=== PATIENT | female | born 1985 | race Caucasian/White ===

== ENCOUNTER 2017-05-30 21:30 | Inpatient (IN) | payer MEDICAID ==
[~2017-05-30] VITALS: Ht 157.5 cm; Wt 72.6 kg
[~2017-05-30 21:30] MED LIST: DEXAMETHASONE SOD PHOS 4 MG/ML VIAL IVP ONE; DSS100 PO; EPHEDrine SULFATE 50 MG/ML VIAL IM ONE; FERR-72 PO; IBUP-2070 PO; KETOROLAC TROMETHAMINE 60 MG/2 ML VIAL IM ONE; ONDANSETRON HCL 4 MG/2 ML VIAL IVP ONE; OXYTOCIN 10 UNITS/ML VIAL IM ONE; PERCT PO
[2017-05-30] MEDS ORDERED: CITRIC ACID/SODIUM CITRATE 30 ML SOLUTION UDCUP ONE (22:05)
[2017-05-30] MEDS ORDERED: METOCLOPRAMIDE HCL 5 MG/ML 2 ML VIAL ONE (22:05)
[2017-05-30] MEDS ORDERED: RINGERS SOLUTION,LACTATED 1,000 ML IV ONE (22:07)
[2017-05-30] MEDS ORDERED: FentaNYL CITRATE-PF 100 MCG/2 ML VIAL ONE (22:10)
[2017-05-30] MEDS ORDERED: MIDAZOLAM HCL 2 MG/2 ML VIAL ONE (22:10)
[2017-05-30] MEDS ORDERED: MORPHINE SULFATE/PF 0.5 MG/ML 10 ML AMP ONE (22:10)
[2017-05-30] MEDS ORDERED: CITRIC ACID/SODIUM CITRATE 30 ML SOLUTION UDCUP PO ONE (22:15)
[2017-05-30] MEDS ORDERED: METOCLOPRAMIDE HCL 5 MG/ML 2 ML VIAL IVP ONE (22:15)
[2017-05-30] MEDS ORDERED: TERBUTALINE SULFATE 1 MG/ML VIAL ONE (22:20)
[2017-05-30 22:31] LABS: BASOPHILS # (AUTO) 0.09 K/uL (0.00-0.20); EOSINOPHILS # (AUTO) 0.14 K/uL (0.00-0.70); EOSINOPHILS % (AUTO) 1.47 % (1.0-6.0); HEMATOCRIT 28.7 % (36-46); HEMOGLOBIN 9.2 g/dL (12.0-16.0); LYMPHOCYTES # (AUTO) 1.5 K/uL (1.0-4.8); LYMPHOCYTES % (AUTO) 16.4 % (22.0-44.0); MEAN CORPUSCULAR HEMOGLOBIN 25.5 pg (26.0-34.0); MEAN CORPUSCULAR HGB CONC 31.9 G/dL (31.0-37.0); MEAN CORPUSCULAR VOLUME 80 fL (80-100); MONOCYTES # (AUTO) 0.6 K/uL (0.1-1.0); MONOCYTES % (AUTO) 6.6 % (2.0-9.0); NEUTROPHILS # (AUTO) 6.9 K/uL (1.8-7.7); NEUTROPHILS % (AUTO) 74.5 % (40.0-70.0); RED BLOOD CELL COUNT(AUTO) 3.59 MIL/uL (4.00-5.20); RED CELL DISTRIBUTION WIDTH 17.4 % (11.5-14.5); WHITE BLOOD COUNT (AUTO) 9.2 K/uL (4.5-11.0)
[2017-05-30 22:51] VITALS: BP 124/77
[2017-05-30 22:51] LABS: RUBELLA SCREEN (IGG) IMMUNE (IMMUNE)
[2017-05-30] MEDS ORDERED: TERBUTALINE SULFATE 1 MG/ML VIAL SQ PRN (23:00)
[2017-05-30 23:14] LABS: RBC MORPHOLOGY COMMENT ABNORMAL RBC MORPH
[2017-05-30] MEDS ORDERED: OXYGEN THERAPY IH SCH ×2 (23:15)
[2017-05-30] MEDS ORDERED: ONDANSETRON HCL 4 MG/2 ML VIAL IVP PRN ×2 (23:15)
[2017-05-30] MEDS ORDERED: MORPHINE SULFATE 2 MG/ML SYRINGE IVP PRN (23:15)
[2017-05-30] MEDS ORDERED: FentaNYL CITRATE-PF 100 MCG/2 ML VIAL IVP PRN ×2 (23:15)
[2017-05-30] MEDS ORDERED: DiphenhydrAMINE HCL 50 MG/ML VIAL IVP PRN ×2 (23:15)
[2017-05-30] MEDS ORDERED: MORPHINE SULFATE 4 MG/ML SYRINGE IVP PRN (23:15)
[2017-05-30 23:29] LABS: APPEARANCE,URINE CLEAR (CLEAR); GLUCOSE, URINE (UA) 500 mg/dL (NEGATIVE); KETONES,URINE NEGATIVE (NEGATIVE); LEUKOCYTE ESTERASE ,URINE TRACE (NEGATIVE); OCCULT BLOOD,URINE SMALL (NEGATIVE); PH,URINE 6.5 (5.0-8.0); PROTEIN,URINE NEGATIVE (NEGATIVE)
[2017-05-30 23:31] LABS: ADD UA MICROSCOPIC YES
[2017-05-30 23:44] LABS: SQUAMOUS EPITHELIAL CELL,UR Few /LPF (None Seen)
[2017-05-31] MEDS ORDERED: LANOLIN 7 GM OINTMENT TP PRN (02:00)
[2017-05-31] MEDS: RINGERS SOLUTION,LACTATED 1,000 ML IV SCH ×3 (02:43→18:28)
[2017-05-31] MEDS: NALBUPHINE HCL 10 MG/ML VIAL IVP SCH ×3 (02:44→15:09)
[2017-05-31] MEDS: KETOROLAC TROMETHAMINE 30 MG/ML VIAL IVP SCH ×3 (06:14→18:13)
[2017-05-31] MEDS ORDERED: MAGNESIUM HYDROXIDE SUSPENSION 30 ML UDCUP PO PRN (18:45)
[2017-06-01] MEDS: IBUPROFEN 800 MG TABLET PO SCH ×3 (00:28→12:26)
[2017-06-01] MEDS ORDERED: ACETAMINOPHEN/CODEINE 300-30 MG TABLET PO PRN ×2 (02:00)
[2017-06-01 06:41] LABS: BASOPHILS % (AUTO) 0.1 % (0.0-2.0); EOSINOPHILS % (AUTO) 1.3 % (1.0-6.0); HEMATOCRIT 27.8 % (36-46); LYMPHOCYTES # (AUTO) 2.7 K/uL (1.0-4.8); LYMPHOCYTES % (AUTO) 22.1 % (22.0-44.0); MEAN CORPUSCULAR HEMOGLOBIN 25.8 pg (26.0-34.0); MEAN CORPUSCULAR HGB CONC 32.3 G/dL (31.0-37.0); MEAN CORPUSCULAR VOLUME 80 fL (80-100); MONOCYTES # (AUTO) 0.4 K/uL (0.1-1.0); MONOCYTES % (AUTO) 2.9 % (2.0-9.0); NEUTROPHILS % (AUTO) 73.6 % (40.0-70.0); RED BLOOD CELL COUNT(AUTO) 3.48 MIL/uL (4.00-5.20); RED CELL DISTRIBUTION WIDTH 17.4 % (11.5-14.5); WHITE BLOOD COUNT (AUTO) 12.3 K/uL (4.5-11.0)
[2017-06-01 09:10] LABS: RBC MORPHOLOGY COMMENT ABNORMAL RBC MORPH
[2017-06-01] MEDS ORDERED: IBUP-2070 PO ×3 (10:35→10:42)
[2017-06-04 07:01] LABS: AMPHETAMINES URINE Positive; METHAMPHETAMINES URINE Positive; UR AMPHETAMINES GC/MS CONFIRM 824 ng/mL (Cutoff=500); UR METHAMPHETAMINES GC/MS CONF 2780 ng/mL (Cutoff=500)
== END 2017-06-01 17:30 | disposition home or self-care (01) | DRG 540 ==
LOC: 4S 21:30 → OBSVTOIN 21:30 → 4S 05-31 01:36
PROVIDERS: ADMIT Obstetrics & Gynecology; ATTEND Obstetrics & Gynecology
PROC: 10D00Z1 Extraction of Products of Conception, Low, Open Approach (ICD-10-PCS; principal; 2017-05-30)
DX: O60.14X0 Preterm labor third trimester with preterm delivery third trimester, not applicable or unspecified (principal); O76 Abnormality in fetal heart rate and rhythm complicating labor and delivery; O34.211 Maternal care for low transverse scar from previous cesarean delivery; Z37.0 Single live birth; Z3A.32 32 weeks gestation of pregnancy
CPT/HCPCS: 80307; 80324; 86592; 86762; 86850; 86900; 86901; 87340; J0690; J1100; J1885; J2250; J2274; J2300; J2405; J2590; J2765; J3010; J3105; J3490; J7120

== ENCOUNTER 2021-05-03 18:01 | Emergency (ER) | payer MEDICAID ==
[~2021-05-03] VITALS: Ht 160 cm; Wt 72.7 kg
[~2021-05-03 18:01] MED LIST changes: -DEXAMETHASONE SOD PHOS 4 MG/ML VIAL IVP ONE; -EPHEDrine SULFATE 50 MG/ML VIAL IM ONE; -IBUP-2070 PO; -KETOROLAC TROMETHAMINE 60 MG/2 ML VIAL IM ONE; +LEVO750T68 PO; -ONDANSETRON HCL 4 MG/2 ML VIAL IVP ONE; -OXYTOCIN 10 UNITS/ML VIAL IM ONE
[2021-05-03 18:37] LABS: BASOPHILS % (AUTO) 0.3 % (0.0-2.0); EOSINOPHILS % (AUTO) 4.2 % (1.0-6.0); HEMATOCRIT 37.2 % (36-46); HEMOGLOBIN 12.2 g/dL (12.0-16.0); LYMPHOCYTES # (AUTO) 1.9 K/uL (1.0-4.8); LYMPHOCYTES % (AUTO) 21.8 % (22.0-44.0); MEAN CORPUSCULAR HEMOGLOBIN 29.9 pg (26.0-34.0); MEAN CORPUSCULAR HGB CONC 32.9 G/dL (31.0-37.0); MEAN CORPUSCULAR VOLUME 91 fL (80-100); MONOCYTES # (AUTO) 0.5 K/uL (0.1-1.0); MONOCYTES % (AUTO) 5.5 % (2.0-9.0); NEUTROPHILS # (AUTO) 6.1 K/uL (1.8-7.7); NEUTROPHILS % (AUTO) 68.2 % (40.0-70.0); PLATELET COUNT (AUTO) 362 K/uL (150-450); RED CELL DISTRIBUTION WIDTH 14.4 % (11.5-14.5)
[2021-05-03 18:59] LABS: APPEARANCE,URINE CLEAR (CLEAR); BILIRUBIN,URINE NEGATIVE (NEGATIVE); GLUCOSE, URINE (UA) >=1000 mg/dL (NEGATIVE); KETONES,URINE NEGATIVE (NEGATIVE); LEUKOCYTE ESTERASE ,URINE TRACE (NEGATIVE); NITRATE,URINE NEGATIVE (NEGATIVE); OCCULT BLOOD,URINE NEGATIVE (NEGATIVE); PROTEIN,URINE NEGATIVE (NEGATIVE); UROBILINOGEN,URINE 0.2 mg/dL (<=1.0)
[2021-05-03 19:02] LABS: BACTERIA,URINE None Seen /HPF (None Seen); RBC,URINE None Seen /HPF (0-2); SQUAMOUS EPITHELIAL CELL,UR Few /LPF (None Seen); WBC,URINE 0-2 /HPF (0-5)
[2021-05-03 19:04] LABS: ANION GAP 9 mmol/L (8-16); CALCIUM, TOTAL 8.4 mg/dL (8.8-10.5); CARBON DIOXIDE 27 mmol/L (22-29); CHLORIDE 106 mmol/L (98-107); GLOMERULAR FILTR. RATE CALC > 60 mL/min (>60); GLUCOSE,RANDOM 85 mg/dL (70-110); POTASSIUM 3.4 mmol/L (3.5-5.1); SODIUM SERUM 142 mmol/L (136-145); UREA NITROGEN, BLOOD 16 mg/dL (7-18)
[2021-05-03 19:14] LABS: ALANINE AMINOTRANSFERASE 28 U/L (12-78); ALBUMIN 3.1 g/dL (3.4-5.0); ALKALINE PHOSPHATASE 59 U/L (46-116); ASPARTATE AMINOTRANSFERASE 16 U/L (15-37); BILIRUBIN,TOTAL 0.2 mg/dL (0.1-1.0); TOTAL PROTEIN, SERUM 7.4 g/dL (6.4-8.2)
[2021-05-03] MEDS ORDERED: DOXYLAMINE SUCCINATE 25 MG TABLET PO ONE (19:30)
[2021-05-03] MEDS ORDERED: PYRIDOXINE HCL 50 MG TABLET PO ONE (19:30)
[2021-05-03] MEDS ORDERED: ACETAMINOPHEN 500 MG TABLET PO ONE (19:30)
[2021-05-03 19:47] LABS: HCG,QUANTITATIVE 42767 mIU/mL (0-6)
[2021-05-03] MEDS ORDERED: FAMOTIDINE 20 MG TABLET PO ONE (20:15)
[2021-05-04 00:25] VITALS: BP 120/64
== END 2021-05-04 00:15 | disposition home or self-care (01) ==
LOC: EMS 18:05
DX: O20.0 Threatened abortion (principal); Z3A.08 8 weeks gestation of pregnancy; Z88.8 Allergy status to other drugs, medicaments and biological substances; Z91.013 Allergy to seafood
CPT/HCPCS: 76817; 80053; 81001; 84702; 85025; 86901; 99285

== ENCOUNTER 2021-06-02 13:09 | Emergency (ER) | payer MEDICAID ==
[~2021-06-02] VITALS: Ht 160 cm; Wt 75.0 kg
[2021-06-02 13:11] VITALS: BP 122/82
== END 2021-06-02 14:15 | disposition left against medical advice (07) ==
LOC: EMS 13:09
DX: R10.30 Lower abdominal pain, unspecified (principal); Z53.21 Procedure and treatment not carried out due to patient leaving prior to being seen by health care provider